=== PATIENT | female | born 1950 | race Caucasian/White ===

== ENCOUNTER 2021-07-25 11:14 | Outpatient (REF) | payer MEDICARE, SELFPAY ==
[2021-07-25 14:03] LABS: MANUAL DIFF FLAG NO
[2021-07-25 14:06] LABS: Basophils Percent Auto 0.3 % (0-2); Eosinophils Absolute Auto 0.2 X10*3/uL (0.0-0.4); Hematocrit 42.8 % (37.0-47.0); Hemoglobin 13.8 g/dl (12.0-16.0); Imm Gran Abs Auto 0.02 X10*3/uL (0.00-0.03); Imm Gran Pct Auto 0.3 % (0.0-0.4); Lymphocytes Absolute Auto 2.5 X10*3/uL (1.2-4.9); Mean Corpuscular HGB Conc 32.2 g/dl (31.0-35.0); Mean Corpuscular Hemoglobin 28.1 pg (27.0-33.0); Mean Corpuscular Volume 87.2 fL (80.0-98.0); Mean Platelet Volume 9.4 fL (9.4-12.3); Monocytes Absolute Auto 0.5 X10*3/uL (0.1-1.2); Monocytes Percent Auto 5.8 % (2-11); Neutrophils Absolute Auto 4.9 x10*3/uL (2.0-8.3); Neutrophils Percent Auto 60.6 % (45-73); Platelet Count 391 X10*3/uL (160-400); Red Blood Count 4.91 X10*6/uL (4.20-5.50); Red Cell Distribution Width 13.3 % (11.0-16.0)
[2021-07-25 14:45] LABS: Alanine Aminotransferase 14 U/L (0-31); Albumin Level 4.1 g/dL (3.5-5.0); Alkaline Phosphatase 88 U/L (39-117); Anion Gap 11 (12-20); Aspartate Amino Transferase 14 U/L (5-31); Bilirubin Total 0.7 mg/dL (0.0-1.0); Blood Urea Nitrogen 12 mg/dL (9-16); Calcium 9.5 mg/dL (8.4-10.2); Carbon Dioxide 28 mmol/L (22-29); Chloride 106 mmol/L (96-108); Cholesterol 258 mg/dL; Estimated Glomerular Filt Rate > 60; Glucose Fasting 112 mg/dL (60-99); HDL Cholesterol 53 mg/dL; LDL Cholesterol Calculated 184 mg/dl; Potassium 4.3 mmol/L (3.3-5.1); Sodium 141 mmol/L (135-145); Total Protein 7.4 g/dL (6.5-8.0); Triglycerides 107 mg/dL
[2021-07-25 14:51] LABS: Thyroid Stimulating Hormone 1.42 uIU/mL (0.32-4.0)
== END 2021-07-25 11:15 | disposition home or self-care (01) ==
LOC: HO.10HDL 11:14
PROVIDERS: Visit Provider Internal Medicine
DX: Z00.00 Encounter for general adult medical examination without abnormal findings (principal)
CPT/HCPCS: 36415; 80053; 80061; 84443; 85025

== ENCOUNTER 2021-08-27 11:49 | Outpatient (REF) | payer MEDICARE, SELFPAY ==
[2021-08-27 14:42] LABS: Erythrocyte Sedimentation Rate 3 MM/HR (0-20)
[2021-08-28 08:25] LABS: Syphilis Screen Nonreactive (Nonreactive)
[2021-08-28 08:51] LABS: Lyme Abs Screen <0.90 index
[2021-08-28 20:42] LABS: Anti Nuclear Antibody Screen NEGATIVE (NEGATIVE)
== END 2021-08-27 11:50 | disposition home or self-care (01) ==
LOC: HO.10HDL 11:49
PROVIDERS: Visit Provider Psychiatry & Neurology Neurology
DX: R42 Dizziness and giddiness (principal)
CPT/HCPCS: 36415; 85652; 86038; 86039; 86617; 86618; 86780

== ENCOUNTER 2021-09-02 11:27 | Outpatient (REF) | payer MEDICARE, SELFPAY ==
[2021-09-02 12:57] LABS: Blood Urea Nitrogen 13 mg/dL (9-16); Estimated Glomerular Filt Rate > 60
== END 2021-09-02 11:28 | disposition home or self-care (01) ==
LOC: HO.LAB 11:27
PROVIDERS: PCP Internal Medicine; Visit Provider Psychiatry & Neurology Neurology
DX: G52.9 Cranial nerve disorder, unspecified (principal)
CPT/HCPCS: 36415; 82565; 84520

== ENCOUNTER 2021-09-05 14:32 | Outpatient (REF) | payer MEDICARE, SELFPAY ==
--- NOTE | ~2021-09-05 | MM_ITS ---
EXAMINATION: MM SCREENING DIGITAL BREAST TOMOSYNTHESIS, BILATERAL CLINICAL INFORMATION: Screening. Asymptomatic. The lifetime risk of breast cancer based on the Tyrer-Cuzick Model is 4%. COMPARISON: Mammography: 08/31/2017, 02/12/2017, 06/17/2016, 06/09/2016 TECHNIQUE: Digital breast tomosynthesis is performed in both the craniocaudal and mediolateral oblique views along with computer-aided detection (CAD). Synthesized 2D images are generated from the tomosynthesis. FINDINGS: There are scattered areas of fibroglandular density (ACR BI-RADS breast composition Category b). There are no significant masses, abnormal calcifications, or other abnormalities. Parenchymal pattern is similar to prior studies. There are no significant changes. MM/MM tomosynthesis screening BI IMPRESSION: No mammographic evidence of malignancy. ASSESSMENT: BI-RADS 1: Negative RECOMMENDATION: Routine annual mammography screening. This patient's information was entered into a reminder system with a target due date for their next mammogram.
== END 2021-09-05 14:33 | disposition home or self-care (01) ==
LOC: HO.MAMMO 14:32
PROVIDERS: Visit Provider Internal Medicine
DX: Z12.31 Encounter for screening mammogram for malignant neoplasm of breast (principal)
CPT/HCPCS: 77063; 77067

== ENCOUNTER → 2021-10-03 11:14 | Outpatient (BNVA) | payer MEDICARE, SELFPAY | PROVIDERS: PCP Internal Medicine; Referring Provider Internal Medicine; Visit Provider Nurse Practitioner | DX: Z01.818 Encounter for other preprocedural examination (principal) | CPT/HCPCS: 99202 ==

== ENCOUNTER 2022-04-10 11:36 | Day surgery (SDC) | payer MEDICARE, SELFPAY ==
--- NOTE | 2022-04-09 13:18 | P.CONAN_ITS ---
Documented by User: Alessandra Eng NP 04/09/22 13:19 HPI - Anesthesia Eval Consult details Narrative: 71yo F for Colonoscopy [facility] Active Problems Active Problems: All Active Problems (Updated 10/03/21 @ 11:38 by CADENCE Self) Colon cancer screening (Acute) Vertigo (Acute) Physical exam (Acute) Ear discomfort (Acute) Past Medical History Medical History Vertigo Family History Family History Mother No problems noted. Father No problems noted. Surgical History Surgical History History of section Social History Social History Housing: House Alcohol intake: current Alcohol intake frequency: holidays/special occasions only Alcohol type: wine Patient Tobacco Use Status: Former Tobacco user Quit Date: Tobacco use type: Cigarette e-Cigarette/Vaping Use: Never Used Second Hand Smoke Exposure: No Use of substances other than those prescribed or required for medical reasons: No Are you DNR?: No Advance Directives: No Advance Directives Information Provided: Yes service: No Current occupational status: retired Cognitive needs: No Hearing needs: No Vision needs: No Meds Allergies Allergy/AdvReac Type Severity Reaction Status Date / Time No Known Allergies Allergy Verified 10/03/21 11:43 Exam Exam Date and Time: April 09, 2022 1318 Assessment and Plan Assessment Anesthesia Assessment: Chart Reviewed Documented by User: Lowell Brower MD 04/10/22 12:33 [facility] Past Medical History Medical History Vertigo Patient : No Family History Family History Mother No problems noted. Father No problems noted. Family history of problems with anesthesia: No Surgical History Surgical History History of section History of Problems with Anesthesia: No Social History Social History Housing: House Alcohol intake: current Alcohol intake frequency: holidays/special occasions only Alcohol type: wine Patient Tobacco Use Status: Former Tobacco user Quit Date: Tobacco use type: Cigarette e-Cigarette/Vaping Use: Never Used Second Hand Smoke Exposure: No Use of substances other than those prescribed or required for medical reasons: No Are you DNR?: No Advance Directives: No Advance Directives Information Provided: Yes service: No Current occupational status: retired Cognitive needs: No Hearing needs: No Vision needs: No Meds Allergies Allergy/AdvReac Type Severity Reaction Status Date / Time No Known Allergies Allergy Verified 10/03/21 11:43 Exam Airway Mallampati Class: II TM Dist: >3cm Loose/Missing/Broken Teeth: No Heart: rrr Lungs: clear Assessment and Plan Final Anesthetic Review Family History of Problems with Anesthesia: No History of Problems with Anesthesia: No NPO: Yes ASA Class: II Final Preanesthetic Review: No Changes in Pt Med Stat, Meds/Allgs Chart Reviewed and Consent Obtained/Reviewed Patient Risk: Low Procedure Risk: Low Anesthetic Plan Anesthetic Plan: MAC: Disposition: Standard PACU
--- NOTE | 2022-04-10 | ECG_ITS ---
Test Reason : afib Blood Pressure : / mmHG Vent. Rate : 108 BPM Atrial Rate : 000 BPM P-R Int : 000 ms QRS Dur : 076 ms QT Int : 356 ms P-R-T Axes : 000 059 031 degrees QTc Int : 477 ms Atrial fibrillation with rapid ventricular response Abnormal ECG No previous ECGs available Referred By: Lowell Brower Electronically Signed By:SALUD DYKES
--- NOTE | 2022-04-10 11:53 | MHC.SHP ---
Pre-Procedural Eval Section A Date of Service: 04/10/22 Section B Chief Complaint: screening Relevant Family History (Specify if Yes): No Relevant Social History: None Present Medications: see Short Stay Collaborative assessment Medical History: Significant History (Vertigo) History of Previous Operations: Relevant previous surgery/procedure and date(s) (c section x 3) Allergies: Allergies Allergy/AdvReac Type Severity Reaction Status Date / Time No Known Allergies Allergy Verified 10/03/21 11:43 Review of Systems Sugical H&P ROS: Negative: Constitution, Cardiovascular, Respiratory, Neurological, Psychiatric, Hem-Onc, Allergic/Immunologic, Gastrointestinal, Genitourinary, Musculoskeletal, Integumentary, Endocrine and Eyes/Ears/Nose/Throat Exam Surgical H&P Exam: Normal: HEENT, Normal: Heart, Normal: Lungs, Normal: Extremities, Normal: Abdomen, Normal: Skin and Normal: Neurological Plan Diagnosis/Plan: Unchanged I have reviewed the history and physical and performed a pertinent physical examination on my patient. No changes have occurred unless specified.
[2022-04-10 12:04] VITALS: BP 156/79; PULSE 83; RESP 18; TEMP 36.3; O2SAT 98
[2022-04-10 12:07] VITALS: BMI 25.0
--- NOTE | 2022-04-10 12:22 | W.PM.OPN ---
Operative Note Operative Note Date of Service: 04/10/22 Narrative: Operative Information Procedure Description: Colonoscopy Indication: screening Anesthesia: MAC COLONOSCOPY Instrument: Olympus variable stiffness adult scope 190L Colonoscopy Monitoring: Vital signs and clinical assessment, continuous EKG monitoring, Pulse oximetry, Carbon Dioxide monitoring and blood pressure monitoring were done throughout the procedure. Colon withdrawal time was 12 minutes. Procedure: The patient was placed in the left lateral decubitis position and pre-procedure medications were administered. After a digital rectal examination of the ano-rectum, the video colonoscope was inserted into the rectum and advanced through the colon to the cecum/TI. The colonoscope was slowly withdrawn in a retrograde panoramic fashion and the colon mucosa was carefully examined including a retroflexed view of the rectum. Findings and interventions are described below. Procedure Difficulty: moderate difficulty due to severe diverticulosis, needed sigmoid lift Findings: Terminal Ileum-superficially intubated and normal Cecum:normal right sided retroflexion- normal Ascending Colon: normal Transverse Colon -normal Descending Colon:normal Sigmoid Colon: severe diverticulosis with wide mouthed tics, tortuous colon, and luminal narrowing and hypertrophy of mucosa Rectum: Retroflexion with small internal hemorrhoids, grade I Anorectum - normal Colon preparation: [place] Bowel Preparation Scale Right colon; 3 Transverse colon: 3 Left colon; 3 (0 = Unprepared colon segment with mucosa not seen due to solid stool that cannot be cleared. 1 = Portion of mucosa of the colon segment seen, but other areas of the colon segment not well seen due to staining, residual stool and/or opaque liquid. 2 = Minor amount of residual staining, small fragments of stool and/or opaque liquid, but mucosa of colon segment seen well. 3 = Entire mucosa of colon segment seen well with no residual staining, small fragments of stool or opaque liquid) Impression and Post Procedure Diagnosis: internal hemorrhoids diverticular disease Plan: High fiber diet leaflet Avoid straining at stool, epsom salts and sitz bath, anusol supps or cream Repeat Colonoscopy in 10 years if health allows or earlier if clinically indicated, would use a pediatric scope for future procedures Above findings were reviewed with the patient and relevant handouts were provided if indicated.
[2022-04-10] MEDS: Lactated Ringers 1,000 ML 100 ML IVCONT (12:38)
[2022-04-10 13:22] VITALS: BP 138/80; PULSE 102; RESP 12; TEMP 36.7; O2SAT 97
[2022-04-10 13:37] VITALS: BP 152/79; PULSE 87; RESP 18; O2SAT 98
--- NOTE | 2022-04-10 14:01 | ECG_ITS ---
Test Reason : afib Blood Pressure : / mmHG Vent. Rate : 086 BPM Atrial Rate : 086 BPM P-R Int : 168 ms QRS Dur : 078 ms QT Int : 384 ms P-R-T Axes : 058 048 067 degrees QTc Int : 459 ms Normal sinus rhythm Normal ECG When compared with ECG of 10-APR-2022 13:18, Sinus rhythm has replaced Atrial fibrillation Referred By: Ciro Tariq Electronically Signed By:SALUD DYKES
[2022-04-10 14:22] VITALS: BP 152/79; PULSE 82; RESP 18; TEMP 36.7; O2SAT 97
== END 2022-04-10 14:47 | disposition home or self-care (01) ==
PROVIDERS: PCP Internal Medicine; Visit Provider Internal Medicine Gastroenterology
PROC: 0DJD8ZZ Inspection of Lower Intestinal Tract, Via Natural or Artificial Opening Endoscopic (ICD-10-PCS; CPT 45378; principal; 2022-04-10 13:00)
DX: Z12.11 Encounter for screening for malignant neoplasm of colon (principal); K57.30 Diverticulosis of large intestine without perforation or abscess without bleeding; K64.0 First degree hemorrhoids; R42 Dizziness and giddiness; Z87.891 Personal history of nicotine dependence
CPT/HCPCS: G0121; 93005

== ENCOUNTER → 2022-07-08 10:59 | Outpatient (BNVA) | payer MEDICARE, SELFPAY | PROVIDERS: PCP Internal Medicine; Referring Provider Internal Medicine; Visit Provider Internal Medicine Cardiovascular Disease | DX: I48.0 Paroxysmal atrial fibrillation (principal); I50.30 Unspecified diastolic (congestive) heart failure; Z87.891 Personal history of nicotine dependence; Z77.22 Contact with and (suspected) exposure to environmental tobacco smoke (acute) (chronic) | CPT/HCPCS: 93005; 99202 ==

== ENCOUNTER → 2022-07-15 10:19 | Outpatient (REF) | payer MEDICARE, SELFPAY ==
--- NOTE | 2022-07-15 10:21 | HM_ITS ---
* Total monitoring time 5 days. * Underlying rhythm is sinus. Average ventricular rate 75/Min. Range 55 to 123/Min. * Very rare PACs/PVCs with minimal burden. * No sustained arrhythmias. * No significant pauses or AV blocks. * No patient diary our marker. MTDD
--- NOTE | 2022-07-15 10:21 | CA_ITS ---
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 The calculated ejection fraction is 61% by biplane method. - There is mild septal and mild basal asymmetric hypertrophy. - No obvious valvular pathology seen on this study. Findings Left Ventricle Normal left ventricular cavity size. The left ventricular systolic function is normal. The calculated ejection fraction is 61% by biplane method. There is no evidence of regional wall motion abnormalities. Diastolic function is normal for age. There is mild septal and mild basal asymmetric hypertrophy. Right Ventricle Normal right ventricular cavity size and systolic function. Atria Both atria are normal in size. Aortic Valve There is a normal trileaflet aortic valve. There is mild calcification of the aortic valve. There is no aortic valve stenosis. There is no aortic valve regurgitation. Mitral Valve The mitral valve appears normal. There is mild mitral annular calcification. There is no mitral valve regurgitation. There is no mitral valve stenosis. Pulmonic Valve The pulmonic valve is likely normal. Tricuspid Valve Normal tricuspid valve structure. There is no tricuspid valve regurgitation. Tricuspid regurgitation envelope is inadequate for calculation of right ventricular systolic pressure. Great Vessels The asc aorta is normal in size. Venous The inferior vena cava is normal in size and collapses greater than 50% with inspiration. Pericardium/Pleural There is no evidence of pericardial effusion. Prior Study Comparison No prior study available for comparison. Recommendations, Care & Conclusions No obvious valvular pathology seen on this study. Measurements 2D Linear Measurements IVSd: 1.24 0.6-0.9/0.6-1.0 cm LVIDd: 3.48 3.9-5.3/4.2-5.9 cm LVIDd Index: 2.12 2.4-3.2/2.2-3.1 cm/m2 LVIDs: 2.02 2.0-3.6 cm LVPWd: 0.89 0.7-1.1 cm LA Diam: 3.60 2.7-3.8/3.0-4.0 cm LAIDs Index: 2.20 1.5-2.3 cm/m2 LV Mass: 139.69 67-162/88-224 g LV Mass Index: 85.18 43-95/49-115 g/m2 LVOT Diam: 2.20 3.0+(-)1.3 cm 2D Systolic Function EF 4C: 63.20 >55% EF 2C: 57.60 >55% EF BiP: 61.20 >55% Mitral Valve MV Pk E: 0.57 MV PK A: 0.96 MV Decel Time: 204.00 E/A: 0.60 E'Lateral: 6.53 E'Medial: 4.35 E/E' Med: 13.00 E/E' Lat: 8.70 PHT: 60.00 MVA PHT: 3.67 Decel [place]: 2.77 Aortic Valve AoV Pk Emanuel: 1.53 AoV Mn Emanuel: 1.00 AoV VTI: 0.26 AoV Pk Grad: 9.00 Aov Mn Grad: 4.00 CHRISTIAN Cont.VTI: 2.76 LVOT LVOT Pk Emanuel: 0.99 LVOT Mn Emanuel: 0.68 LVOT VTI: 0.19 LVOT Pk Grad: 4.00 LVOT Mn Grad: 2.00 LVOT Diam: 2.20 LVOT Area: 3.80 Diastolic Function MV Pk E: 0.57 MV Pk A: 0.96 E/A: 0.60 E'Medial: 4.35 E/E' Med: 13.00 E' Laterial: 6.53 E/E' Lat: 8.70 Right Ventricle TAPSE (mm): 24.20 TVS' Emanuel: 14.40 Tricuspid Valve RA Press: 3.00 Great Vessels Aorta Sinus of Valsalva: 3.36 2.0-3.5 cm Ao Asc: 2.60 2.1-3.4 cm Updated in Other Vendor System with Status of Final Wally Reeves MD electronically signed on 07/16/2022 12:39:57 PM with status of Final
== END ==
LOC: HO.CARD 10:19
PROVIDERS: PCP Internal Medicine; Visit Provider Internal Medicine Cardiovascular Disease
DX: I48.0 Paroxysmal atrial fibrillation (principal)
CPT/HCPCS: 93242; 93306

== ENCOUNTER → 2022-08-28 13:56 | Outpatient (BNVA) | payer MEDICARE, SELFPAY | PROVIDERS: PCP Internal Medicine; Referring Provider Internal Medicine; Visit Provider Internal Medicine Cardiovascular Disease | DX: I48.0 Paroxysmal atrial fibrillation (principal); R03.0 Elevated blood-pressure reading, without diagnosis of hypertension | CPT/HCPCS: 99212 ==

== ENCOUNTER 2022-10-28 11:13 | Outpatient (REF) | payer MEDICARE, SELFPAY ==
--- NOTE | ~2022-10-28 | MM_ITS ---
EXAMINATION: MM SCREENING DIGITAL BREAST TOMOSYNTHESIS, BILATERAL CLINICAL INFORMATION: Screening. Asymptomatic. The lifetime risk of breast cancer based on the Tyrer-Cuzick Model is 3.2%. COMPARISON: Mammography: 09/05/2021 and studies dating back to 02/06/2010. TECHNIQUE: Digital breast tomosynthesis is performed in both the craniocaudal and mediolateral oblique views along with computer-aided detection (CAD). Synthesized 2D images are generated from the tomosynthesis. FINDINGS: There are scattered areas of fibroglandular density (ACR BI-RADS breast composition Category b). There are no new significant masses, abnormal calcifications, or other abnormalities. About the deep inferior aspect of the right breast, there is a circumscribed density measuring 3 mm in diameter which has been present dating back to and which has a few calcifications similar in appearance to study of 09/05/2021 likely related to degenerative fibroadenoma. There are a few other bilateral stable circumscribed densities. MM/MM tomosynthesis screening BI IMPRESSION: No significant changes from prior exam. ASSESSMENT: BI-RADS 2: Benign RECOMMENDATION: Routine annual mammography screening. This patient's information was entered into a reminder system with a target due date for their next mammogram.
== END 2022-10-28 11:14 | disposition home or self-care (01) ==
LOC: HO.MAMMO 11:13
PROVIDERS: PCP Internal Medicine; Visit Provider Internal Medicine
DX: Z12.31 Encounter for screening mammogram for malignant neoplasm of breast (principal)
CPT/HCPCS: 77063; 77067

== ENCOUNTER 2023-02-12 10:23 | Outpatient (AMB) | payer MEDICARE, SELFPAY ==
[2023-02-12 10:24] VITALS: BP 146/90; PULSE 88; O2SAT 100; BMI 24.7
--- NOTE | 2023-02-12 10:24 | A.OFFPC_ITS ---
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 Required: No Allergies No Known Allergies Allergy (Verified 02/12/23 10:24) Medication List - Last Reconciled 02/12/23 by Harpreet Ortiz MD tramadol 50 mg PO Q8H PRN zolpidem 5 mg PO BEDTIME PRN Tobacco use date assessed: 02/12/23 Fall risk assessment: No Falls in past year Last assessed Fall Risk: 02/12/23 Dental Screening Dental Screen Date: 02/12/23 Did you have a dental visit in the last 12 months?: Yes Did you have a dental problem in the last 6 months where you did not have access to dental care?: No HPI lower back pain HPI Details right sciatica for a week [facility] Medical History Vertigo Surgical History History of section History of colonoscopy Family History Mother No problems noted. Father No problems noted. Social History Housing: House Alcohol intake: current Alcohol intake frequency: holidays/special occasions only Alcohol type: wine Patient Tobacco Use Status: Former Tobacco user Quit Date: Tobacco use type: Cigarette e-Cigarette/Vaping Use: Never Used Second Hand Smoke Exposure: Yes service: No Current occupational status: retired Cognitive needs: No Hearing needs: No Vision needs: No Questionnaire PHQ-9 Over the last 2 weeks, how often have you been bothered by any of the following problems? Depression Screening Interpretation: Negative Source: Developed by Drs. Fabricio Rosado, Heidi Poole, Dmitri Olguin and colleagues, with an educational td from [employer]. Thrive Questionnaire Date Thrive assessed: 10/29/22 Currently or been in a relationship where the following occur: no concerns reported AUDIT C Alcohol Use Questionnaire (AUDIT-C) 1. How often do you have a drink containing alcohol?: Never Total Score: 0 Score Reviewed/Action Taken: Yes CARISA-7 AMB Questionnaire CARISA-7 Date CARISA - 7 assessed: 10/29/22 Source: Developed by Drs. Fabricio Rosado, Heidi Poole, Dmitri Olguin and colleagues, with an educational td from [employer]. Review of Systems Const Denies chills, Denies headache(s) and Denies weight loss ENT Denies headache(s) Card Denies chest pain, Denies syncope, Denies irregular heart rhythm and Denies dyspnea Resp Denies chest congestion, Denies cough and Denies dyspnea GI Denies abdominal pain, Denies change in stool character, Denies nausea and Denies vomiting Musc Denies deformity and Denies joint swelling Neuro Denies syncope and Denies headache(s) Physical exam (Primary Care) Vital Signs: Last Vital Signs Pulse 88 02/12/23 10:24 BP 146/90 H 02/12/23 10:24 Pulse Ox 100 02/12/23 10:24 Oxygen Delivery Method Room Air 02/12/23 10:24 BMI result Body Mass Index 24.7 Tobacco/Smoking Status: Tobacco use Status Tobacco use date assessed 02/12/23 02/12/23 10:25 Patient Tobacco Use Status Former Tobacco user 02/12/23 10:25 Tobacco use type Cigarette 02/12/23 10:25 e-Cigarette/Vaping Use Never Used 02/12/23 10:25 Depression Screening Interpretation: Negative Thrive Assessment: Date of Thrive Assessment Date Thrive assessed 10/29/22 02/12/23 10:25 Currently or been in a relationship where the following occur: no concerns reported Const General: cooperative, comfortable and no acute distress Resp Effort & Inspection: normal respiratory effort Auscultation: clear to auscultation bilaterally Percussion: percussion normal Cardio Jugular venous distension: no JVD Rate: regular rate Rhythm: regular rhythm Assessment and Plan Assessment & Plan (1) Sciatica: Code(s): M54.30 - Sciatica, unspecified side Plan: rx Orders: Orders XR lumbar spine 2-3V Today M54.9 - Dorsalgia, unspecified Medications: New methylprednisolone (Medrol (Pk)) PO PER PKG DIR 21 ea 0RF oxycodone Partial Fill upon patient request. 5 mg PO Q6H PRN 10 tabs 0RF pain Coding Level of Care Code Est Pt Level 3 (40834) Diagnoses Sciatica M54.30
== END 2023-02-12 10:42 | disposition home or self-care (01) ==
PROVIDERS: PCP Internal Medicine; Visit Provider Internal Medicine
DX: M54.30 Sciatica, unspecified side (principal)
CPT/HCPCS: 99213

== ENCOUNTER 2023-02-12 10:46 | Outpatient (REF) | payer MEDICARE, SELFPAY ==
--- NOTE | ~2023-02-12 | XR_ITS ---
EXAMINATION: XR LUMBOSACRAL SPINE CLINICAL INFORMATION: Reason for Exam M54.9 - Dorsalgia, unspecified COMPARISON: None TECHNIQUE: 3 views of the lumbar spine FINDINGS: 5 nonrib-bearing lumbar-type vertebral bodies. Vertebral body heights are maintained. Grade 1 anterolisthesis of L4 on L5. Mild to moderate multilevel degenerative disc disease with loss of disc space height and facet arthropathy. Atherosclerotic calcifications of the abdominal aorta. XR/XR lumbar spine 2-3V IMPRESSION: * Mild to moderate spondylosis of the lumbar spine, as above detailed. * Spondylolisthesis, as above detailed.
== END 2023-02-12 10:47 | disposition home or self-care (01) ==
LOC: HO.XRAY 10:46
PROVIDERS: PCP Internal Medicine; Visit Provider Internal Medicine
DX: M54.9 Dorsalgia, unspecified (principal)
CPT/HCPCS: 72100

== ENCOUNTER 2023-08-27 14:50 | Outpatient (AMB) | payer OTHER, SELFPAY ==
[2023-08-27 15:07] VITALS: BP 140/60; PULSE 84; BMI 24.9
--- NOTE | 2023-08-27 15:07 | A.OFFVIS_ITS ---
Intake Vital Signs 08/27/23 15:07 Height 5 ft 2 in Weight 136 lb 3.931 oz BMI 24.9 BP 140/60 H Blood Pressure Location Lt brachial Position Sitting Pulse 84 Intake Visit Reasons: 1 year followup w/ekg dx: paf Intake Note: pt its here for a 1 yr f/up with ekg, pt states that she its feeling good. 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 She denies any cardiac symptoms. However she says a blood pressure at home is mostly elevated in the 150 systolic range. She has no symptoms of palpitation irregular heartbeat. Denies any racing heart rate, slow heart rate, lightheadedness, syncope. No exertional chest pain or shortness of breath. She remains pretty active in her day-to-day life. She watches salt in her diet. [facility] Medical History Vertigo Surgical History History of colonoscopy History of section Family History Mother No problems noted. Father No problems noted. Social History Housing: House Alcohol intake: current Alcohol intake frequency: holidays/special occasions only Alcohol type: wine Patient Tobacco Use Status: Former Tobacco user Quit Date: Tobacco use type: Cigarette e-Cigarette/Vaping Use: Never Used Second Hand Smoke Exposure: Yes service: No Current occupational status: retired Cognitive needs: No Hearing needs: No Vision needs: No Review of Systems Const Denies chills, Denies fatigue, Denies fever(s), Denies frequent falls, Denies weakness, Denies weight gain and Denies weight loss ENT Denies dizziness Card Denies chest pain, Denies leg edema, Denies lightheadedness, Denies palpitations, Denies dyspnea and Denies dyspnea on exertion Resp Denies cough, Denies dyspnea and Denies dyspnea on exertion GI Denies hematochezia Musc Denies abnormal gait, Denies muscle weakness, Denies numbness, Denies radiating pain into limb and Denies tingling Neuro Denies Abnormal speech present, Denies abnormal gait, Denies dizziness, Denies frequent falls, Denies numbness, Denies tingling and Denies weakness Endo Denies fatigue and Denies palpitations Physical Exam Vital Signs: Last Vital Signs Pulse 84 08/27/23 15:07 BP 140/60 H 08/27/23 15:07 BMI result Body Mass Index 24.9 Const General: cooperative, comfortable, no acute distress, alert, awake and well groomed Nutritional Appearance: average body habitus and well nourished Orientation/consciousness: patient oriented x3 Limitations: no limitations Neck Neck: Yes trachea midline, Yes supple and Yes no JVD Chest Chest palpation & inspection: normal inspection of the chest Resp Effort & Inspection: normal respiratory effort Auscultation: clear to auscultation bilaterally Cardio Jugular venous distension: no JVD Palpation: normal PMI Rate: regular rate Rhythm: regular rhythm Heart sounds: S1 normal heart sound present, S2 normal heart sound present, no click, no gallops, Murmur heart sound present systolic early and no rubs Skin General skin exam: no rashes or lesions noted Neuro General: patient oriented x3 Speech: No Abnormal speech present Psych Appearance: grossly normal Office Procedures EKG Details: EKG shows normal sinus rhythm with nonspecific ST abnormality 23050-[id number], Complete Assessment & Plan Assessment & Plan (1) HTN (hypertension): Code(s): I10 - Essential (primary) hypertension Plan: Isolated systolic hypertension this elderly woman. Importance of control blood pressure was discussed to reduce risk of future cardiovascular events as well as stroke. She is participating heart healthy lifestyle. Advised low-salt diet. Will add Norvasc 2.5 mg to regimen. Advised to continue monitor blood pressure at home maintain a log and forwarded to me in 4-6 weeks time. Importance of good blood pressure control was discussed. She understands and is agreeable. She is very hesitant to start any medical therapy but is agreeable. (2) Paroxysmal atrial fibrillation: Code(s): I48.0 - Paroxysmal atrial fibrillation Plan: Paroxysmal atrial fibrillation in the setting of colonoscopy. She has had no obvious clinical recurrence. However she remains at risk for recurrence in the future. Elevated stroke risk given her age as well as risk factor of hypertensi on was discussed with her. She does not want any additional medical therapy at this point time. Avoidance of stimulants was discussed. Will follow up in the clinic in 1 year's time, sooner p.r.n.. Thank you for allowing me to partake in the care Medications: New amlodipine 2.5 mg PO DAILY 30 tabs 5RF Coding Level of Care Code Est Pt Level 4 (59432) Diagnoses HTN (hypertension) I10 Paroxysmal atrial fibrillation I48.0 CPT Codes EKG - CPT: 27135-[id number], Complete ([id number])
== END 2023-08-27 15:39 | disposition home or self-care (01) ==
PROVIDERS: PCP Internal Medicine; Visit Provider Internal Medicine Cardiovascular Disease
DX: I10 Essential (primary) hypertension (principal); I48.0 Paroxysmal atrial fibrillation
CPT/HCPCS: 93010; 99214

== ENCOUNTER → 2023-08-27 14:50 | Outpatient (BNVA) | payer OTHER, SELFPAY | PROVIDERS: PCP Internal Medicine; Visit Provider Internal Medicine Cardiovascular Disease | DX: I10 Essential (primary) hypertension (principal); I48.0 Paroxysmal atrial fibrillation | CPT/HCPCS: 93005; 99212 ==

== ENCOUNTER 2024-05-10 11:30 | Outpatient (AMB) | payer OTHER, SELFPAY ==
--- NOTE | 2024-05-10 11:32 | MHC.PC.OV ---
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 Accompanied by: Self / Same As Patient Allergies No Known Allergies Allergy (Verified 05/10/24 11:35) Medication List - Last Reconciled 05/10/24 by Harpreet Ortiz MD amlodipine 2.5 mg PO DAILY tramadol 50 mg PO Q8H PRN zolpidem 5 mg PO BEDTIME PRN Tobacco use date assessed: 05/10/24 Fall risk assessment: 1 Fall in past year (Last week of April - slipped down the stairs) Last assessed Fall Risk: 05/10/24 Dental Screening Dental Screen Date: 05/10/24 Did you have a dental visit in the last 12 months?: No Did you have a dental problem in the last 6 months where you did not have access to dental care?: No Was dental information given to patient?: Patient declined HPI Meds follow up HPI Details right sided sciatica for a month [facility] Medical History Vertigo Surgical History History of colonoscopy History of section Family History Mother No problems noted. Father No problems noted. Social History Housing: House Alcohol intake: current Alcohol intake frequency: holidays/special occasions only Alcohol type: wine Patient Tobacco Use Status: Former Tobacco user Tobacco use type: Cigarette e-Cigarette/Vaping Use: Never Used Second Hand Smoke Exposure: Yes service: No Current occupational status: retired Cognitive needs: No Hearing needs: No Vision needs: No Questionnaire PHQ-9 Over the last 2 weeks, how often have you been bothered by any of the following problems? 1. Little interest or pleasure in doing things: not at all 2. Feeling down, depressed, or hopeless: not at all 3. Trouble falling or staying asleep, or sleeping too much: not at all 4. Feeling tired or having little energy: not at all 5. Poor appetite or overeating: not at all 6. Feeling bad about yourself - or that you are a failure or have let yourself or your family down: not at all 7. Trouble concentrating on things, such as reading the newspaper or watching television: not at all 8. Moving or speaking so slowly that other people could have noticed. Or the opposite - being so fidgety or restless that you have been moving around a lot more than usual: not at all 9. Thoughts that you would be better off or of hurting yourself in some way: not at all Total score: 0 Depression Screening Interpretation: Negative Depression Screening Done: Yes 15669 - PHQ-9 Billing: Yes Source: Developed by Drs. Fabricio Rosado, Hiedi Poole, Dmitri Olguin and colleagues, with an educational td from [employer]. Thrive Questionnaire Date Thrive assessed: 05/10/24 I am a: Patient What is your living situation today?: I have a steady place to live Within the past 12 months, did the food you bought not last and you didn't have the money to get more?: Never true Within the past 12 months, did you worry whether your food would run out before you got money to buy more?: Never true THRIVE Score: 0 AUDIT C Alcohol Use Questionnaire (AUDIT-C) 1. How often do you have a drink containing alcohol?: Never 3. How often do you have six or more drinks on one occasion?: Never Total Score: 0 Score Reviewed/Action Taken: Yes CARISA-7 AMB Questionnaire CARISA-7 Date CARISA - 7 assessed: 05/10/24 Feeling nervous, anxious, or on edge: 1 = Several days Not being able to stop or control worryin = Not at all Worrying too much about different things: 0 = Not at all Trouble relaxin = Not at all Being so restless that it is hard to sit still: 0 = Not at all Becoming easily annoyed or irritable: 0 = Not at all Feeling afraid as if something awful might happen: 0 = Not at all Total CARISA-7 score (0-4 normal; 5-9 mild; 10-14 moderate; 15-21 severe): 1 Source: Developed by Drs. Fabricio Rosado, Heidi Poole, Dmitri Olgiun and colleagues, with an educational td from [employer]. CARISA-7 Assessment Billing CARISA-7 Assessment Tool: CARISA-7 Assessment 91359 Review of Systems Const Denies chills, Denies headache(s) and Denies weight loss ENT Denies headache(s) Card Denies chest pain, Denies syncope, Denies irregular heart rhythm and Denies dyspnea Resp Denies chest congestion, Denies cough and Denies dyspnea GI Denies abdominal pain, Denies change in stool character, Denies nausea and Denies vomiting Musc Denies deformity and Denies joint swelling Neuro Denies syncope and Denies headache(s) Physical exam (Primary Care) Vital Signs: Last Vital Signs Pulse 97 05/10/24 11:33 BP 156/80 H 05/10/24 11:33 Pulse Ox 97 05/10/24 11:33 Oxygen Delivery Method Room Air 05/10/24 11:33 BMI result Body Mass Index 25.4 Tobacco/Smoking Status: Tobacco use Status Tobacco use date assessed 05/10/24 05/10/24 11:38 Patient Tobacco Use Status Former Tobacco user 05/10/24 11:34 Tobacco use type Cigarette 05/10/24 11:34 e-Cigarette/Vaping Use Never Used 05/10/24 11:34 PHQ-9: PHQ-9 Score PHQ-9: Total score 0 05/10/24 11:38 Depression Screening Interpretation: Negative Thrive Assessment: Date of Thrive Assessment Date Thrive assessed 05/10/24 05/10/24 11:38 Const General: cooperative, comfortable, no acute distress and alert Neck Neck: Yes no lymphadenopathy Thyroid: Thyroid normal Resp Effort & Inspection: normal respiratory effort Auscultation: clear to auscultation bilaterally Percussion: percussion normal Cardio Jugular venous distension: no JVD Palpation: normal PMI Rate: regular rate Rhythm: regular rhythm Heart sounds: S1 normal heart sound present and S2 normal heart sound present GI Inspection: Yes normal to inspection Palpation (GI): No hepatosplenomegaly present Skin General skin exam: no rashes or lesions noted Extrem General: Yes no clubbing, cyanosis or edema Coding Level of Care Code Est Pt Level 3 (99882) Diagnoses Sciatica M54.30 Additional Codes CARISA-7 Assessment Billing - CARISA-7 Assessment Tool: CARISA-7 Assessment 70117 ([id number]) Assessment & Plan Assessment & Plan (1) Sciatica: Code(s): M54.30 - Sciatica, unspecified side Category: Medical Plan: rx sent Orders: Orders Complete Blood Count Auto Diff Today Z13.0 - Encounter for screening for diseases of the blood and blood-forming organs and certain disorders involving the immune mechanism Thyroid Stimulating Hormone Today Z13.29 - Encounter for screening for other suspected endocrine disorder Comprehensive [place]. Panel Fast Today Z13.9 - Encounter for screening, unspecified Lipid Panel Today Z13.220 - Encounter for screening for lipoid disorders Medications: New meloxicam 15 mg PO DAILY 30 tabs 3RF
[2024-05-10 11:33] VITALS: BP 156/80; PULSE 97; O2SAT 97; BMI 25.4
== END 2024-05-10 11:56 | disposition home or self-care (01) ==
LOC: HO.HMCH 11:30
PROVIDERS: PCP Internal Medicine; Visit Provider Internal Medicine
DX: M54.30 Sciatica, unspecified side (principal)

== ENCOUNTER → 2024-05-10 11:30 | Outpatient (BNVA) | payer OTHER, SELFPAY | PROVIDERS: PCP Internal Medicine; Visit Provider Internal Medicine | DX: M54.30 Sciatica, unspecified side (principal) | CPT/HCPCS: 96127; 99212 ==

== ENCOUNTER 2024-06-03 09:44 | Outpatient (REF) | payer OTHER, SELFPAY ==
[2024-06-03 10:10] LABS: MANUAL DIFF FLAG NO
[2024-06-03 10:24] LABS: Basophils Percent Auto 0.5 % (0-2); Eosinophils Absolute Auto 0.1 X10*3/uL (0.0-0.4); Eosinophils Percent Auto 1.9 % (0-4); Hematocrit 41.4 % (37.0-47.0); Hemoglobin 13.9 g/dl (12.0-16.0); Imm Gran Abs Auto 0.02 X10*3/uL (0.00-0.03); Imm Gran Pct Auto 0.3 % (0.0-0.4); Lymphocytes Absolute Auto 2.6 X10*3/uL (1.2-4.9); Lymphocytes Percent Auto 34.9 % (20-40); Mean Corpuscular HGB Conc 33.6 g/dl (31.0-35.0); Mean Corpuscular Hemoglobin 29.3 pg (27.0-33.0); Mean Corpuscular Volume 87.2 fL (80.0-98.0); Mean Platelet Volume 9.1 fL (9.4-12.3); Monocytes Absolute Auto 0.5 X10*3/uL (0.1-1.2); Neutrophils Absolute Auto 4.1 x10*3/uL (2.0-8.3); Neutrophils Percent Auto 55.4 % (45-73); Platelet Count 375 X10*3/uL (160-400); Red Blood Count 4.75 X10*6/uL (4.20-5.50); Red Cell Distribution Width 13.4 % (11.0-16.0); White Blood Count 7.4 X10*3/uL (4.8-10.8)
[2024-06-03 11:14] LABS: Alanine Aminotransferase 20 U/L (0-31); Albumin Level 4.2 g/dL (3.5-5.0); Alkaline Phosphatase 92 U/L (39-117); Anion Gap 13 (12-20); Aspartate Amino Transferase 21 U/L (5-31); Bilirubin Total 0.8 mg/dL (0.0-1.0); Blood Urea Nitrogen 15 mg/dL (9-16); Calcium 9.1 mg/dL (8.4-10.2); Carbon Dioxide 26 mmol/L (22-29); Chloride 107 mmol/L (96-108); Cholesterol 247 mg/dL (<200); Estimated Glomerular Filt Rate > 60; Glucose Fasting 147 mg/dL (60-99); HDL Cholesterol 56 mg/dL (>40); LDL Cholesterol Calculated 174 mg/dL (<100); Sodium 142 mmol/L (135-145); Total Protein 7.5 g/dL (6.5-8.0); Triglycerides 89 mg/dL (<150)
[2024-06-03 11:23] LABS: Thyroid Stimulating Hormone 1.83 uIU/mL (0.32-4.0)
== END 2024-06-03 09:45 | disposition home or self-care (01) ==
LOC: HO.LAB 09:44
PROVIDERS: PCP Internal Medicine; Visit Provider Internal Medicine
DX: Z13.9 Encounter for screening, unspecified (principal); Z13.0 Encounter for screening for diseases of the blood and blood-forming organs and certain disorders involving the immune mechanism; Z13.29 Encounter for screening for other suspected endocrine disorder; Z13.220 Encounter for screening for lipoid disorders
CPT/HCPCS: 36415; 80053; 80061; 84443; 85025

== ENCOUNTER 2024-08-18 10:22 | Outpatient (AMB) | payer MEDICARE, SELFPAY ==
[2024-08-18 10:31] VITALS: BP 150/92; PULSE 98; O2SAT 98; BMI 26.2
--- NOTE | 2024-08-18 10:31 | MHC.PC.OV ---
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 Accompanied by: Self / Same As Patient Allergies No Known Allergies Allergy (Verified 08/18/24 10:32) Medication List - Last Reconciled 08/19/24 by Harpreet Ortiz MD amlodipine 2.5 mg PO DAILY meloxicam 15 mg PO DAILY tramadol 50 mg PO Q8H PRN zolpidem 5 mg PO BEDTIME PRN Tobacco use date assessed: 08/18/24 Fall risk assessment: 1 Fall in past year Last assessed Fall Risk: 08/18/24 Dental Screening Dental Screen Date: 08/18/24 Did you have a dental visit in the last 12 months?: Yes Did you have a dental problem in the last 6 months where you did not have access to dental care?: No Was dental information given to patient?: Patient has dentist HPI Labs f/u HPI Details HTN on Rx; doing well; compliant [facility] Medical History Vertigo Surgical History History of colonoscopy History of section Family History Mother No problems noted. Father No problems noted. Social History Housing: House Alcohol intake: current Alcohol intake frequency: holidays/special occasions only Alcohol type: wine Patient Tobacco Use Status: Former Tobacco user Tobacco use type: Cigarette e-Cigarette/Vaping Use: Never Used Second Hand Smoke Exposure: Yes service: No Current occupational status: retired Cognitive needs: No Hearing needs: No Vision needs: No Questionnaire PHQ-9 Over the last 2 weeks, how often have you been bothered by any of the following problems? 1. Little interest or pleasure in doing things: not at all 2. Feeling down, depressed, or hopeless: not at all 3. Trouble falling or staying asleep, or sleeping too much: not at all 4. Feeling tired or having little energy: not at all 5. Poor appetite or overeating: not at all 6. Feeling bad about yourself - or that you are a failure or have let yourself or your family down: not at all 7. Trouble concentrating on things, such as reading the newspaper or watching television: not at all 8. Moving or speaking so slowly that other people could have noticed. Or the opposite - being so fidgety or restless that you have been moving around a lot more than usual: not at all 9. Thoughts that you would be better off or of hurting yourself in some way: not at all Total score: 0 Depression Screening Interpretation: Negative Depression Screening Done: Yes 20606 - PHQ-9 Billing: Yes Source: Developed by Drs. Fabricio Rosado, Heidi Poole, Dmitri Olguin and colleagues, with an educational td from [employer]. Thrive Questionnaire Date Thrive assessed: 08/18/24 I am a: Patient What is your living situation today?: I have a steady place to live Within the past 12 months, did the food you bought not last and you didn't have the money to get more?: Never true Within the past 12 months, did you worry whether your food would run out before you got money to buy more?: Never true Do you have trouble paying for medicines?: No Do you have trouble getting transportation to medical appointments?: No Do you have trouble paying your heating and electricity bill?: No Do you have trouble taking care of your child, family member or friend?: No Do you have trouble with day-to-day activities such as bathing, preparing meals, shopping, managing finances, etc.?: No Are you currently unemployed and looking for a job?: No Are you interested in more education?: No Please select the resources that you would like help with: None Currently or been in a relationship where the following occur: No concerns reported THRIVE Score: 0 AUDIT C Alcohol Use Questionnaire (AUDIT-C) 1. How often do you have a drink containing alcohol?: Never 3. How often do you have six or more drinks on one occasion?: Never Total Score: 0 Score Reviewed/Action Taken: Yes CARSIA-7 AMB Questionnaire CARISA-7 Date CARISA - 7 assessed: 08/18/24 Feeling nervous, anxious, or on edge: 1 = Several days Not being able to stop or control worryin = Not at all Worrying too much about different things: 0 = Not at all Trouble relaxin = Not at all Being so restless that it is hard to sit still: 0 = Not at all Becoming easily annoyed or irritable: 0 = Not at all Feeling afraid as if something awful might happen: 0 = Not at all Total CARISA-7 score (0-4 normal; 5-9 mild; 10-14 moderate; 15-21 severe): 1 Source: Developed by Drs. Fabricio Rosado, Heidi Poole, Dmitri Olguin and colleagues, with an educational td from [employer]. CARISA-7 Assessment Billing CARISA-7 Assessment Tool: CARISA-7 Assessment 27549 Review of Systems Const Denies chills, Denies headache(s) and Denies weight loss ENT Denies headache(s) Card Denies chest pain, Denies syncope, Denies irregular heart rhythm and Denies dyspnea Resp Denies chest congestion, Denies cough and Denies dyspnea GI Denies abdominal pain, Denies change in stool character, Denies nausea and Denies vomiting Musc Denies deformity and Denies joint swelling Neuro Denies syncope and Denies headache(s) Physical exam (Primary Care) Vital Signs: Last Vital Signs Pulse 98 08/18/24 10:31 BP 150/92 H 08/18/24 10:31 Pulse Ox 98 08/18/24 10:31 Oxygen Delivery Method Room Air 08/18/24 10:31 BMI result Body Mass Index 26.2 Tobacco/Smoking Status: Tobacco use Status Tobacco use date assessed 08/18/24 08/18/24 10:40 Patient Tobacco Use Status Former Tobacco user 08/18/24 10:40 Tobacco use type Cigarette 08/18/24 10:40 e-Cigarette/Vaping Use Never Used 08/18/24 10:40 PHQ-9: PHQ-9 Score PHQ-9: Total score 0 08/18/24 10:40 Depression Screening Interpretation: Negative Thrive Assessment: Date of Thrive Assessment Date Thrive assessed 08/18/24 08/18/24 10:40 Currently or been in a relationship where the following occur: No concerns reported Const General: cooperative, comfortable, no acute distress and alert Neck Neck: Yes no lymphadenopathy Thyroid: Thyroid normal Resp Effort & Inspection: normal respiratory effort Auscultation: clear to auscultation bilaterally Percussion: percussion normal Cardio Jugular venous distension: no JVD Palpation: normal PMI Rate: regular rate Rhythm: regular rhythm Heart sounds: S1 normal heart sound present and S2 normal heart sound present GI Inspection: Yes normal to inspection Palpation (GI): No hepatosplenomegaly present Skin General skin exam: no rashes or lesions noted Extrem General: Yes no clubbing, cyanosis or edema Coding Level of Care Code Est Pt Level 3 (96788) Diagnoses HTN (hypertension) I10 Additional Codes CARISA-7 Assessment Billing - CARISA-7 Assessment Tool: CARISA-7 Assessment 03863 ([id number]) PHQ-9 - 83280 - PHQ-9 Billing: Yes ([id number]) Assessment & Plan Assessment & Plan (1) HTN (hypertension): Code(s): I10 - Essential (primary) hypertension Category: Medical Plan: stable; same rx Orders: Orders Ferritin 08/18/24 D64.9 - Anemia, unspecified Vitamin D 25-OH Total 08/18/24 Z13.9 - Encounter for screening, unspecified
== END 2024-08-18 11:08 | disposition home or self-care (01) ==
PROVIDERS: PCP Internal Medicine; Visit Provider Internal Medicine
DX: I10 Essential (primary) hypertension (principal)

== ENCOUNTER → 2024-08-18 10:22 | Outpatient (BNVA) | payer MEDICARE, SELFPAY | PROVIDERS: PCP Internal Medicine; Visit Provider Internal Medicine | DX: I10 Essential (primary) hypertension (principal) | CPT/HCPCS: 96127; 99212 ==

== ENCOUNTER 2024-08-29 12:53 | Outpatient (REF) | payer MEDICARE, SELFPAY ==
[2024-08-29 14:40] LABS: Ferritin 201 ng/mL (10-250); Vitamin D 25-OH Total 30.1 ng/mL (>30)
== END 2024-08-29 12:54 | disposition home or self-care (01) ==
LOC: HO.LAB 12:53
PROVIDERS: PCP Internal Medicine; Visit Provider Internal Medicine
DX: Z13.9 Encounter for screening, unspecified (principal); D64.9 Anemia, unspecified
CPT/HCPCS: 36415; 82306; 82728

== ENCOUNTER 2024-11-02 15:07 | Outpatient (AMB) | payer MEDICARE, SELFPAY ==
--- NOTE | 2024-11-02 15:11 | MHC.OFFVIS ---
Vital Signs 11/02/24 15:14 Height 5 ft 2 in Weight 138 lb 14.259 oz BMI 25.4 BP 140/84 H Blood Pressure Location Lt brachial Position Sitting Pulse 96 Intake Visit Reasons: 1 year follow up Intake Note: 1 year follow-up with ekg feeling good Brush Or Broom Cutter Required: No Allergies No Known Allergies Allergy (Verified 08/18/24 10:32) Medication List - Last Reconciled 11/02/24 by Brice Hallman MD amlodipine 2.5 mg PO DAILY meloxicam 15 mg PO DAILY tramadol 50 mg PO Q8H PRN zolpidem 5 mg PO BEDTIME PRN HPI Comments Details: Kavita comes for follow-up. No new cardiac symptoms to report. She remains functional and active in her life without any exertional chest pain shortness of breath. No prolonged palpitation irregular heartbeat. No lightheadedness, syncope. No orthopnea, PND, leg edema. Blood pressure remained in the lower 130s. Denies any neurologic events. [facility] Medical History Vertigo Surgical History History of colonoscopy History of section Family History Mother No problems noted. Father No problems noted. Social History Housing: House Alcohol intake: current Alcohol intake frequency: holidays/special occasions only Alcohol type: wine Patient Tobacco Use Status: Former Tobacco user Tobacco use type: Cigarette e-Cigarette/Vaping Use: Never Used Second Hand Smoke Exposure: Yes service: No Current occupational status: retired Cognitive needs: No Hearing needs: No Vision needs: No Review of Systems Const Denies chills, Denies fatigue, Denies fever(s), Denies frequent falls, Denies weakness, Denies weight gain and Denies weight loss ENT Denies dizziness Card Denies chest pain, Denies leg edema, Denies lightheadedness, Denies palpitations, Denies dyspnea, Denies dyspnea on exertion, Denies orthopnea and Denies other (loss of consciousness) Resp Denies cough, Denies dyspnea and Denies dyspnea on exertion GI Denies hematochezia and Denies change in stool character Musc Denies abnormal gait, Denies muscle weakness, Denies numbness, Denies radiating pain into limb and Denies tingling Neuro Denies Abnormal speech present, Denies abnormal gait, Denies dizziness, Denies frequent falls, Denies numbness, Denies tingling and Denies weakness Endo Denies fatigue and Denies palpitations Physical Exam Vital Signs: Last Vital Signs Pulse 96 11/02/24 15:14 BP 140/84 H 11/02/24 15:14 BMI result Body Mass Index 25.4 Const General: cooperative, comfortable, no acute distress, alert, awake and well groomed Nutritional Appearance: average body habitus and well nourished Orientation/consciousness: patient oriented x3 Limitations: no limitations Neck Neck: Yes trachea midline, Yes supple and Yes no JVD Chest Chest palpation & inspection: normal inspection of the chest Resp Effort & Inspection: normal respiratory effort Auscultation: clear to auscultation bilaterally Cardio Jugular venous distension: no JVD Palpation: normal PMI Rate: regular rate Rhythm: regular rhythm Heart sounds: S1 normal heart sound present, S2 normal heart sound present, no click, no gallops, Murmur heart sound present systolic early and no rubs Skin General skin exam: no rashes or lesions noted Neuro General: patient oriented x3 Speech: No Abnormal speech present Psych Appearance: grossly normal Office Procedures EKG Details: EKG shows normal sinus rhythm with occasional PVCs [id number], Complete Assessment & Plan Assessment & Plan (1) Paroxysmal atrial fibrillation: Code(s): I48.0 - Paroxysmal atrial fibrillation Category: Medical Plan: Paroxysmal atrial fibrillation without any overt clinical recurrence at this point time. Discussed about avoidance of stimulants. No change in pharmacotherapy for maintenance of rhythm at this point in time. No need for antiarrhythmic drug therapy. Continue aggressive blood pressure control, see below. Recommend oral anticoagulation therapy given her risk. She wants to think about it. Risks and benefits were discussed. (2) HTN (hypertension): Code(s): I10 - Essential (primary) hypertension Category: Medical Plan: Hypertension which remains borderline uncontrolled. Advised to increase amlodipine to 5 mg daily. She is agreeable to the same. Advised stress mitigation strategies. Advise low-salt diet. Advised to monitor blood pressure at home maintain a log. Goal blood pressure less than 130/84, closer to 120/80. Will follow up in the clinic in 1 year's time, sooner p.r.n.. Thank you for allowing me to partake in his care Orders: Orders CA echo transthoracic complete 1 Year I48.0 - Paroxysmal atrial fibrillation Medications: New amlodipine 5 mg PO DAILY 30 tabs 11RF I48.0 - Paroxysmal atrial fibrillation Discontinued amlodipine Discontinued Reason: Doctor's Order 2.5 mg PO DAILY 30 tabs 11RF Coding Level of Care Code Est Pt Level 4 (94719) Complex EM visit Add On G2211 Diagnoses Paroxysmal atrial fibrillation I48.0 HTN (hypertension) I10 CPT Codes EKG - CPT: 01892-Vlowlheokpmdwpexm, Complete ([id number])
[2024-11-02 15:14] VITALS: BP 140/84; PULSE 96; BMI 25.4
== END 2024-11-02 16:23 | disposition home or self-care (01) ==
PROVIDERS: PCP Internal Medicine; Visit Provider Internal Medicine Cardiovascular Disease
DX: I48.0 Paroxysmal atrial fibrillation (principal); I10 Essential (primary) hypertension
CPT/HCPCS: 93010; 99214; G2211

== ENCOUNTER → 2024-11-02 15:07 | Outpatient (BNVA) | payer MEDICARE, SELFPAY | PROVIDERS: PCP Internal Medicine; Visit Provider Internal Medicine Cardiovascular Disease | DX: I48.0 Paroxysmal atrial fibrillation (principal); I10 Essential (primary) hypertension | CPT/HCPCS: 93005; 99212 ==

== ENCOUNTER 2025-02-16 12:49 | Outpatient (AMB) | payer MEDICARE, SELFPAY ==
--- NOTE | 2025-02-16 12:51 | MHC.PC.OV ---
Vital Signs 02/16/25 12:52 Height 5 ft 2 in Weight 138 lb 2 oz BMI 25.3 BP 126/78 Blood Pressure Location Lt brachial Position Sitting Pulse 103 H Pulse Source Pulse Oximeter Pulse Oximetry (%) 97 Oxygen Delivery Method Room Air Intake Visit Reasons: Transfer care from Dr. 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 Accompanied by: Self / Same As Patient Allergies No Known Allergies Allergy (Verified 02/16/25 13:15) Medication List - Last Reconciled 02/16/25 by Richy Bullard MD amlodipine 5 mg PO DAILY meloxicam 15 mg PO DAILY tramadol 50 mg PO Q8H PRN zolpidem 5 mg PO BEDTIME PRN Tobacco use date assessed: 02/16/25 Fall risk assessment: No Falls in past year Last assessed Fall Risk: 02/16/25 Dental Screening Dental Screen Date: 02/16/25 Did you have a dental visit in the last 12 months?: No Did you have a dental problem in the last 6 months where you did not have access to dental care?: No Was dental information given to patient?: No HPI Transfer care from Dr. Ortiz [facility] f/u HPI Details Patient comes in today for her follow up visit - is transferring over from Dr. Ortiz, who retired from the practice a few months ago Patient states that she feels okay She denies any headaches or dizziness Denies any chest pains, no SOB No nausea/vomiting, no abdominal pain No change in bowel habits noted [employer] [facility] [facility] Medical History (Updated 02/16/25 @ 13:39 by Richy Bullard MD) Paroxysmal atrial fibrillation Essential hypertension Pure hypercholesterolemia Impaired fasting glucose Vertigo Surgical History History of colonoscopy History of section Family History Mother No problems noted. Father No problems noted. Social History Housing: House Alcohol intake: current Alcohol intake frequency: holidays/special occasions only Alcohol type: wine Patient Tobacco Use Status: Former Tobacco user Tobacco use type: Cigarette e-Cigarette/Vaping Use: Never Used Second Hand Smoke Exposure: Yes service: No Current occupational status: retired Cognitive needs: No Hearing needs: No Vision needs: No Questionnaire PHQ-9 Over the last 2 weeks, how often have you been bothered by any of the following problems? 1. Little interest or pleasure in doing things: not at all 2. Feeling down, depressed, or hopeless: not at all 3. Trouble falling or staying asleep, or sleeping too much: several days 4. Feeling tired or having little energy: not at all 5. Poor appetite or overeating: not at all 6. Feeling bad about yourself - or that you are a failure or have let yourself or your family down: not at all 7. Trouble concentrating on things, such as reading the newspaper or watching television: not at all 8. Moving or speaking so slowly that other people could have noticed. Or the opposite - being so fidgety or restless that you have been moving around a lot more than usual: not at all 9. Thoughts that you would be better off or of hurting yourself in some way: not at all Total score: 1 Depression Screening Interpretation: Negative Depression Screening Done: Yes 27720 - PHQ-9 Billing: Yes Source: Developed by Drs. Fabricio Rosado, Heidi Poole, Dmitri Olguin and colleagues, with an educational td from [employer]. Thrive Questionnaire Date Thrive assessed: 02/16/25 I am a: Patient What is your living situation today?: I have a steady place to live Within the past 12 months, did the food you bought not last and you didn't have the money to get more?: Never true Within the past 12 months, did you worry whether your food would run out before you got money to buy more?: Never true Do you have trouble paying for medicines?: No Do you have trouble getting transportation to medical appointments?: No Do you have trouble paying your heating and electricity bill?: No Do you have trouble taking care of your child, family member or friend?: No Do you have trouble with day-to-day activities such as bathing, preparing meals, shopping, managing finances, etc.?: No Are you currently unemployed and looking for a job?: No Are you interested in more education?: No Please select the resources that you would like help with: None Currently or been in a relationship where the following occur: No concerns reported THRIVE Score: 0 AUDIT C Alcohol Use Questionnaire (AUDIT-C) 1. How often do you have a drink containing alcohol?: Monthly or less 2. How many drinks containing alcohol do you have on a typical day when you are drinking?: 1 or 2 3. How often do you have six or more drinks on one occasion?: Never Total Score: 1 Score Reviewed/Action Taken: Yes CARISA-7 AMB Questionnaire CARISA-7 Date CARISA - 7 assessed: 02/16/25 Feeling nervous, anxious, or on edge: 0 = Not at all Not being able to stop or control worryin = Not at all Worrying too much about different things: 0 = Not at all Trouble relaxin = Not at all Being so restless that it is hard to sit still: 0 = Not at all Becoming easily annoyed or irritable: 0 = Not at all Feeling afraid as if something awful might happen: 0 = Not at all Total CARISA-7 score (0-4 normal; 5-9 mild; 10-14 moderate; 15-21 severe): 0 Source: Developed by Drs. Fabircio Rosado, Heidi Poole, Dmitri Olguin and colleagues, with an educational td from [employer]. Review of Systems Const Denies chills, Denies fatigue, Denies fever(s) and Denies headache(s) ENT Denies dysphagia, Denies dizziness, Denies otalgia, Denies headache(s), Denies neck pain, Denies odynophagia and Denies sore throat Card Denies chest pain, Denies palpitations and Denies dyspnea Resp Denies chest congestion, Denies cough and Denies dyspnea GI Denies abdominal pain, Denies constipation, Denies dysphagia, Denies heartburn, Denies diarrhea, Denies nausea, Denies odynophagia and Denies vomiting Denies difficulty voiding, Denies nocturia, Denies dysuria and Denies urinary urgency Musc Denies back pain and Denies neck pain Skin/Breast Denies rash Neuro Denies dizziness and Denies headache(s) Endo Denies fatigue and Denies palpitations Physical exam (Primary Care) Vital Signs: Last Vital Signs Pulse 103 H 02/16/25 12:52 BP 126/78 02/16/25 12:52 Pulse Ox 97 02/16/25 12:52 Oxygen Delivery Method Room Air 02/16/25 12:52 BMI result Body Mass Index 25.3 Tobacco/Smoking Status: Tobacco use Status Tobacco use date assessed 02/16/25 02/16/25 12:59 Patient Tobacco Use Status Former Tobacco user 02/16/25 12:59 Tobacco use type Cigarette 02/16/25 12:59 e-Cigarette/Vaping Use Never Used 02/16/25 12:59 PHQ-9: PHQ-9 Score PHQ-9: Total score 1 02/16/25 15:58 Depression Screening Interpretation: Negative Thrive Assessment: Date of Thrive Assessment Date Thrive assessed 02/16/25 02/16/25 12:59 Currently or been in a relationship where the following occur: No concerns reported Const General: no acute distress and alert HENMT Ears: TM's normal bilaterally and EAC's normal Throat: Yes posterior oropharynx normal and Yes tonsils normal (no TP congestion) Neck Neck: Yes supple and No lymphadenopathy Thyroid: Thyroid normal Resp Auscultation: clear to auscultation bilaterally, no rales and no wheezes Cardio Rate: regular rate Rhythm: regular rhythm Heart sounds: no murmurs GI Palpation (GI): Soft to palpation, nontender and No hepatosplenomegaly present Skin General skin exam: no rashes or lesions noted Extrem General: Yes no clubbing, cyanosis or edema Results Reviewed Results Reviewed: Laboratory Tests 07/25/21 06/03/24 08/29/24 11:18 10:08 13:04 Triglycerides 107 89 Cholesterol 258 247 H LDL Cholesterol, Calc 184 174 H HDL Cholesterol 53 56 25-OH Vitamin D Total 30.1 Laboratory Tests 06/03/24 10:08 Fasting Glucose 147 H Coding Level of Care Code Est Pt Level 4 (88922) Diagnoses Paroxysmal atrial fibrillation I48.0 Essential hypertension I10 Pure hypercholesterolemia E78.00 Impaired fasting glucose R73.01 Additional Codes PHQ-9 - 24544 - PHQ-9 Billing: Yes ([id number]) Assessment & Plan Assessment & Plan (1) Paroxysmal atrial fibrillation: Code(s): I48.0 - Paroxysmal atrial fibrillation Category: Medical Plan: Patient is currently in sinus rhythm and reports no recurrence of symptoms lately Per cardiology, no need for antiarrhythmic therapy at this time but recommend anticoagulation for thromboembolism prophylaxis as she has a [id number] score of 3 Patient asked for time to consider this but has not yet made up her mind as to whether she wants to start prophylactic Tx or not (2) Essential hypertension: Code(s): I10 - Essential (primary) hypertension Category: Medical Plan: Reinforced low sodium diet - goal is systolic BP of 120 mm or less Continue Amlodipine 5 mg QD - dose was increased by cardiology about 2 to 3 months ago She is reminded to continue monitoring her blood pressure regularly (3) Pure hypercholesterolemia: Code(s): E78.00 - Pure hypercholesterolemia, unspecified Category: Medical Plan: Reinforced low-cholesterol diet Patient has been advised that her cholesterol levels when last checked by her previous PCP back in May 2024 were still elevated, with her total cholesterol at 247 mg/dL and LDL cholesterol at 174 mg/dL, although these have improved slightly from her previous numbers back in 2021 Per patient's request, have provided her with a low-cholesterol diet sheet to help her try to get her diet improved better Will have her recheck her fasting lipids in 4 months for follow-up (4) Impaired fasting glucose: Code(s): R73.01 - Impaired fasting glucose Category: Medical Plan: Have advised patient that her fasting blood sugar was also elevated at 147 mg/dL when it was last checked back in May 2024 Reinforced low calorie/low carb diet Will recheck her fasting blood sugar in 4 months for follow-up; we will also check her HgbA1c then for further evaluation Plan Follow up in 4 months Orders: Orders Lipid Panel 4 Months E78.00 - Pure hypercholesterolemia, unspecified Complete Blood Count Auto Diff 4 Months D64.9 - Anemia, unspecified Comprehensive [place]. Panel Fast 4 Months E78.00 - Pure hypercholesterolemia, unspecified TSH reflex Free T4 4 Months E78.00 - Pure hypercholesterolemia, unspecified UA CC w/rflx Micro + Cult 4 Months R30.0 - Dysuria Vitamin D 25-OH Total 4 Months E55.9 - Vitamin D deficiency, unspecified Hemoglobin A1c 4 Months R73.01 - Impaired fasting glucose
[2025-02-16 12:52] VITALS: BP 126/78; PULSE 103; O2SAT 97; BMI 25.3
== END 2025-02-16 13:30 | disposition home or self-care (01) ==
LOC: HO.HMCH 12:50
PROVIDERS: PCP Internal Medicine; Visit Provider Internal Medicine
DX: I48.0 Paroxysmal atrial fibrillation (principal); I10 Essential (primary) hypertension; E78.00 Pure hypercholesterolemia, unspecified; R73.01 Impaired fasting glucose

== ENCOUNTER → 2025-02-16 12:49 | Outpatient (BNVA) | payer MEDICARE, SELFPAY | PROVIDERS: PCP Internal Medicine; Visit Provider Internal Medicine | DX: I10 Essential (primary) hypertension (principal); I48.0 Paroxysmal atrial fibrillation; E78.00 Pure hypercholesterolemia, unspecified; R73.01 Impaired fasting glucose; R30.0 Dysuria; E55.9 Vitamin D deficiency, unspecified | CPT/HCPCS: 96127; 99212 ==

== ENCOUNTER 2025-06-20 13:24 | Outpatient (AMB) | payer MEDICARE, SELFPAY ==
--- NOTE | 2025-06-20 13:33 | A.OFFPC_ITS ---
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 - The patient reports the onset of a sen sation in her right jew 3-4 days ago, which she describes as an ache rather than a sharp pain. - The sensation is not constant but occu rs frequently, more than 10 times a day, with each episode lasting about 10-15 seconds before resolving and then recurring soon after. - The ache is localized to the right tem ple and occasionally feels like it is near the ear, without radiation. - Associated symptoms such as headache, dizziness, vision changes, neck pain, or jaw pain are denied. - She has no prior history of similar sy mptoms. - The patient reports a history of anxie ty, which can cause her neck to feel stiff. - She checks her blood pressure at home, which is usually normal around 130/70 mmHg. - She reports taking her blood pressure medication every morning. - Her last lab work was over a year ago, at which time her total cholesterol was 247 mg/dL and LDL was 174 mg/dL. - Her weight has been consistent at 138 pounds, and she denies adding salt to her food. - She denies any chest pains, no increas ed SOB - No nausea/vomiting, no abdominal pain - No change in bowel habits noted PFSH Medical History Paroxysmal atrial fibrillation Essential hypertension Pure hypercholesterolemia Impaired fasting glucose Vertigo Surgical History History of colonoscopy History of section Family History Mother No problems noted. Father No problems noted. Social History Housing: House Alcohol intake: current Alcohol intake frequency: holidays/special occasions only Alcohol type: wine Patient Tobacco Use Status: Former Tobacco user Tobacco use type: Cigarette e-Cigarette/Vaping Use: Never Used Second Hand Smoke Exposure: Yes service: No Current occupational status: retired Cognitive needs: No Hearing needs: No Vision needs: No Questionnaire PHQ-9 Over the last 2 weeks, how often have you been bothered by any of the following problems? Depression Screening Interpretation: Negative Depression Screening Done: Yes Source: Developed by Drs. Fabricio Rosado, Heidi Poole, Dmitri Olguin and colleagues, with an educational td from [employer]. Thrive Questionnaire Date Thrive assessed: 02/16/25 I am a: Patient What is your living situation today?: I have a place to live, but I am worried about losing it in the future Within the past 12 months, did the food you bought not last and you didn't have the money to get more?: Never true Within the past 12 months, did you worry whether your food would run out before you got money to buy more?: Never true Do you have trouble paying for medicines?: No Do you have trouble getting transportation to medical appointments?: No Do you have trouble paying your heating and electricity bill?: No Do you have trouble taking care of your child, family member or friend?: No Do you have trouble with day-to-day activities such as bathing, preparing meals, shopping, managing finances, etc.?: No Are you currently unemployed and looking for a job?: No Are you interested in more education?: No Please select the resources that you would like help with: None Currently or been in a relationship where the following occur: No concerns reported THRIVE Score: 1 CARISA-7 AMB Questionnaire CARISA-7 Date CARISA - 7 assessed: 02/16/25 Source: Developed by Drs. Fabricio Rosado, Heidi Poole, Dmitri Olguin and colleagues, with an educational td from [employer]. Review of Systems Const Denies chills, Denies fatigue, Denies fever(s) and Reports headache(s) (recurrent over the right temporal area - see HPI for details) Eyes Denies blurry vision and Denies change in vision ENT Denies dysphagia, Denies dizziness, Denies otalgia, Reports headache(s) (recurrent over the right temporal area - see HPI for details), Denies neck pain, Denies odynophagia and Denies sore throat Card Denies chest pain, Denies rapid heart rate, Denies palpitations and Denies dyspnea Resp Denies chest congestion, Denies cough and Denies dyspnea GI Denies abdominal pain, Denies constipation, Denies dysphagia, Denies heartburn, Denies diarrhea, Denies nausea, Denies odynophagia and Denies vomiting Denies difficulty voiding, Denies nocturia, Denies dysuria and Denies urinary urgency Musc Denies back pain and Denies neck pain Skin/Breast Denies rash Neuro Denies dizziness and Reports headache(s) (recurrent over the right temporal area - see HPI for details) Psych Reports anxiety Endo Denies fatigue and Denies palpitations Physical exam (Primary Care) Vital Signs: Last Vital Signs Temp 97.3 F 06/20/25 13:34 Pulse 90 06/20/25 13:34 Resp 16 06/20/25 13:34 BP 152/76 H 06/20/25 13:34 Pulse Ox 93 06/20/25 13:34 Oxygen Delivery Method Room Air 06/20/25 13:34 BMI result Body Mass Index 25.3 Tobacco/Smoking Status: Tobacco use Status Tobacco use date assessed 02/16/25 06/20/25 13:38 Patient Tobacco Use Status Former Tobacco user 06/20/25 13:38 Tobacco use type Cigarette 06/20/25 13:38 e-Cigarette/Vaping Use Never Used 06/20/25 13:38 Depression Screening Interpretation: Negative Thrive Assessment: Date of Thrive Assessment Date Thrive assessed 02/16/25 06/20/25 13:38 Currently or been in a relationship where the following occur: No concerns reported Const General: no acute distress and alert HENMT Other: NO tenderness is noted on examination/palpation over the right temporal area at present Ears: TM's normal bilaterally and EAC's normal Throat: Yes posterior oropharynx normal and Yes tonsils normal (no TP congestion) Neck Neck: Yes supple and No lymphadenopathy Thyroid: Thyroid normal Resp Auscultation: clear to auscultation bilaterally, no rales and no wheezes Cardio Rate: regular rate Rhythm: regular rhythm Heart sounds: no murmurs GI Palpation (GI): Soft to palpation and nontender Auscultation: normal bowel sounds Skin General skin exam: no rashes or lesions noted Extrem General: Yes no clubbing, cyanosis or edema Coding Level of Care Code Est Pt Level 4 (74189) Diagnoses Paroxysmal atrial fibrillation I48.0 Essential hypertension I10 Pure hypercholesterolemia E78.00 Impaired fasting glucose R73.01 Acute nonintractable headache, unspecified headache type R51.9 Headache type: unspecified Headache chronicity pattern: acute headache Intractability: not intractable Assessment & Plan Assessment & Plan (1) Paroxysmal atrial fibrillation: Code(s): I48.0 - Paroxysmal atrial fibrillation Category: Medical Plan: Patient is currently in sinus rhythm and reports no recurrence of symptoms lately Per cardiology, no need for antiarrhythmic therapy at this time but recommend anticoagulation for thromboembolism prophylaxis as she has a [id number] score of 3 Patient asked for time to consider this but has not yet made up her mind as to whether she wants to start prophylactic Tx or not (2) Essential hypertension: Code(s): I10 - Essential (primary) hypertension Category: Medical Plan: Reinforced low sodium diet - goal is systolic BP of 120 mm or less Continue Amlodipine 5 mg QD - dose was increased by cardiology about 2 to 3 months ago She is reminded to continue monitoring her blood pressure regularly (3) Pure hypercholesterolemia: Code(s): E78.00 - Pure hypercholesterolemia, unspecified Category: Medical Plan: She was not able to get her follow up labs done prior to her appointment today Reinforced low-cholesterol diet Patient has been advised that her cholesterol levels when last checked by her previous PCP back in May 2024 were still elevated, with her total cholesterol at 247 mg/dL and LDL cholesterol at 174 mg/dL, although these have improved slightly from her previous numbers back in 2021 Per patient's request, have provided her with a low-cholesterol diet sheet to help her try to get her diet improved better Will have her recheck her fasting lipids HU for follow-up (4) Impaired fasting glucose: Code(s): R73.01 - Impaired fasting glucose Category: Medical Plan: Have advised patient that her fasting blood sugar was also elevated at 147 mg/dL when it was last checked back in May 2024 Reinforced low calorie/low carb diet Will recheck her fasting blood sugar as well for follow-up; we will also check her HgbA1c for further evaluation (5) Headache: Code(s): R51.9 - Headache, unspecified Category: Medical Qualifiers: Headache type: unspecified Headache chronicity pattern: acute headache Intractability: not intractable Qualified Code(s): R51.9 - Headache, unspecified Plan: Have discussed with patient that her recent recurrent/intemittent headaches over her right temporal area appear to be suggestive of and consistent with muscle spasms, possibly triggered by cold or anxiety Temporal arteritis is considered unlikely due to the intermittent nature of the pain and the absence of the characteristic excruciating, unrelenting pain or vision changes seen in temporal arteritis Have recommended that she try applying mild heat or massage to the area when symptoms occur for now and to reach out to us immediately if her symptoms change or progress Plan Follow upin 4 months
[2025-06-20 13:34] VITALS: BP 152/76; PULSE 90; RESP 16; TEMP 36.3; O2SAT 93; BMI 25.3
== END 2025-06-20 14:04 | disposition home or self-care (01) ==
LOC: HO.HMCH 13:25
PROVIDERS: PCP Internal Medicine; Visit Provider Internal Medicine
DX: I48.0 Paroxysmal atrial fibrillation (principal); I10 Essential (primary) hypertension; E78.00 Pure hypercholesterolemia, unspecified; R73.01 Impaired fasting glucose; R51.9 Headache, unspecified

== ENCOUNTER → 2025-06-20 13:24 | Outpatient (BNVA) | payer MEDICARE, SELFPAY | PROVIDERS: PCP Internal Medicine; Visit Provider Internal Medicine | DX: I10 Essential (primary) hypertension (principal); R51.9 Headache, unspecified; I48.0 Paroxysmal atrial fibrillation; E78.00 Pure hypercholesterolemia, unspecified; R73.01 Impaired fasting glucose | CPT/HCPCS: 99212 ==